=== PATIENT | female | born 1970 | race Caucasian/White ===

== ENCOUNTER 2024-05-13 11:50 | Day surgery (SDC) | payer MEDICAID, SELFPAY ==
[2024-05-12 13:24] VITALS: BMI 31.6
[2024-05-13] VITALS (11 sets, daily range): BP systolic 128–162; BP diastolic 71–96; PULSE 60–79; RESP 10–20; TEMP 36.6; O2SAT 97–100; BMI 30.7
[2024-05-13 12:51] LABS: HCG Qualitative,Urine Negative
[2024-05-13] MEDS: RINGERS LACTATED 1000 ML 1,000 ML 100 ML IV (14:02)
[2024-05-13] MEDS: fentaNYL CIT INJ 50 mCg/ML AMP 2ML (ASD USE ONLY) IV (14:03)
[2024-05-13] MEDS: MIDAZOLAM INJ 1 MG/ML VIAL 2 ML (ASD USE ONLY) 2 MG IV (14:04)
[2024-05-13] MEDS: SIMETHICONE 40 MG/0.6 ML ORAL SYRINGE PO (14:17)
== END 2024-05-13 15:08 | disposition home or self-care (01) ==
PROVIDERS: Referring Provider Surgery; Visit Provider Surgery
PROC: 0DBE8ZX Excision of Large Intestine, Via Natural or Artificial Opening Endoscopic, Diagnostic (ICD-10-PCS; CPT 45380; principal; 2024-05-13 13:45)
DX: Z12.11 Encounter for screening for malignant neoplasm of colon (principal); K64.4 Residual hemorrhoidal skin tags
CPT/HCPCS: 45378; 81025; A4217; J2250; J3010; J7120; A9270